=== PATIENT | male | born 1985 | race Asian ===

== ENCOUNTER 2020-12-30 20:18 | Emergency (ER) | payer OTHER, SELFPAY ==
--- NOTE | ~2020-12-30 | XR_ITS ---
EXAMINATION: XR finger 4th RT min 2V INDICATION: Right fourth finger pain TECHNIQUE: Three views of the right fourth finger are obtained. COMPARISON: None available FINDINGS: There is no fracture, dislocation, or subluxation. The bones, soft tissues, and joint space s are normal. No radiopaque foreign body is identified. IMPRESSION: 1. No acute osseous abnormality. Reviewed, dictated and finalized at location A.
--- NOTE | ~2020-12-30 | XR_ITS ---
EXAMINATION: XR finger 3rd RT min 2V INDICATION: Right third finger pain, initial encounter TECHNIQUE: Three views of the right third finger are obtained. COMPARISON: None available FINDINGS: There is no fracture, dislocation, or subluxation. The bones and joint spaces are normal. T here is soft tissue swelling and a linear defect involving the distal aspect of the finger. No radiop aque foreign body is identified. IMPRESSION: 1. Soft tissue swelling and laceration of the distal third finger without underlying osseous abnormal ity. Reviewed, dictated and finalized at location A. IMPRESSION: 1. Soft tissue swelling and laceration of the distal third finger without under lying osseous abnormality.
[2020-12-30 21:15] VITALS: BP 109/73; PULSE 67; RESP 18; TEMP 37; O2SAT 100
--- NOTE | 2020-12-30 22:00 | ED.WOUNDLAC ---
HPI - Wound/Laceration General Chief Complaint: Wound/Laceration Stated Complaint: right 3d and 4th finger lacerations Time Seen by Provider: 12/30/20 21:48 History of Present Illness HPI narrative: 35 yo male w/ no significant medical history presnts to the ED for a finger injury. He reached under a firefighter type one and his right third and fourth finger were struck by the blade. He has moderate pain. He sustained a laceration to the fourth finger and a finger nail injury to the third. Sensation is intact. Unknown last tetanus shot. Related Data Allergies Allergy/AdvReac Type Severity Reaction Status Date / Time No Known Allergies Allergy Verified 12/30/20 21:19 Review of Systems Review of Systems: All systems reviewed & are unremarkable except as noted in HPI and below Constitutional: Constitutional: Denies chills and Denies fever(s) Neurologic: Denies numbness and Denies weakness Hematologic/Lymphatic: Hematologic/Lymphatic: Denies easy bleeding and Denies easy bruising PMFSH Social History Social History Gender identity (if verbalized by the patient): Male Exam Const: General: healthy appearing, no acute distress and alert Orientation/consciousness: patient oriented x3 HENMT: Head: normal to inspection Resp: Effort & Inspection: normal respiratory effort Auscultation: clear to auscultation bilaterally Cardio: Rate: regular rate Rhythm: regular rhythm Other: 2+ right radial pulse Skin: Other: 2.5 cm laceration to tip of right fourth finger. cracked finger nail on third finger without other significant injury Neuro: Other: motor and sensory grossly intact Extrem: Other: No deformity. Full ROM Course Vital Signs Vital signs: Vital Signs Temperature 37.0 C 12/30/20 21:15 Pulse Rate 67 12/30/20 21:15 Respiratory Rate 18 12/30/20 21:15 Blood Pressure 109/73 12/30/20 21:15 Pulse Oximetry 100 12/30/20 21:15 Temperature 37.0 C 12/30/20 21:15 Pulse Rate 62 12/31/20 00:09 Respiratory Rate 16 12/31/20 00:09 Blood Pressure 102/73 12/31/20 00:09 Pulse Oximetry 100 12/31/20 00:09 Procedures Laceration Laceration 1: Site: hand Side (If applicable): right (fourth finger) Size (cm): 2.5 Description: linear Depth: simple, single layer Local Anesthetic: lidocaine 1% Amount of anesthesia used (mL): 2 Pre-repair: wound explored and irrigated extensively ====== Skin Level ====== Skin layer closed with: nylon Size (cm): 5-0 Number of sutures: 5 Technique: simple, interrupted ====== Subcutaneous Layer ====== ====== Muscle Layer ====== ====== Tendon Layer ====== MDM - Wound/Laceration MDM Narrative Medical decision making narrative: No fracture. concern for contamination given mechanism. Tetanus updated. I will prescribe a course of prophylactic antibiotics. Differential Diagnosis Differential diagnosis: Likely laceration and other (open fracture) Imaging Data Radiologist's impression: ITS Impressions Finger X-Ray 12/30/20 22:29 IMPRESSION: 1. No acute osseous abnormality. Finger X-Ray 12/30/20 22:40 IMPRESSION: 1. Soft tissue swelling and laceration of the distal third finger without underlying osseous abnormality. Discharge Plan Discharge Clinical Impression: Finger laceration Qualifiers: Encounter type: initial encounter Finger: ring finger Damage to nail status: without damage Foreign body presence: without foreign body Laterality: right Qualified Code(s): S61.214A - Laceration without foreign body of right ring finger without damage to nail, initial encounter Patient Disposition: Home, Self-Care Condition: Stable Instructions: Antibiotic Form, Laceration (ED) Additional Instructions: Follow-up for suture removal in 10-14 days Prescriptions: New cephalexin 500 mg capsu
[2020-12-30] MEDS: TETANUS,DIPHTHERIA,AC PERTUSSIS ADULT (0.5 ML) BOOSTRIX IM (22:22)
[2020-12-30] MEDS: IBUPROFEN 600 MG TABLET PO (22:23)
[2020-12-30] MEDS: CEPHALEXIN 500 MG CAPSULE PO (22:23)
[2020-12-30] MEDS: HYDROcodone/acetaminophen (*CRX) 5-325 MG TABLET 1 TAB PO (22:23)
[2020-12-30 23:37] VITALS: BP 109/72; PULSE 57; RESP 16; O2SAT 98
[2020-12-31 00:09] VITALS: BP 102/73; PULSE 62; RESP 16; O2SAT 100
== END 2020-12-31 00:09 | disposition home or self-care (01) ==
PROVIDERS: Emergency Provider Emergency Medicine; PCP Emergency Medicine
DX: S61.214A Laceration without foreign body of right ring finger without damage to nail, initial encounter (principal); S69.81XA Other specified injuries of right wrist, hand and finger(s), initial encounter; Z23 Encounter for immunization; W28.XXXA Contact with powered lawn mower, initial encounter
CPT/HCPCS: 12001; 73140; 90471; 90715; 99283; A9270